=== PATIENT | male | born 1955 | race Caucasian/White ===

== ENCOUNTER 2016-11-06 08:49 | Emergency (ER) | payer BC, OTHER ==
--- NOTE | 2016-11-06 09:07 | EDM.PDOC ---
ED HPI GENERAL MEDICAL PROBLEM - General Chief Complaint: Chest Pain Stated Complaint: CHEST PAIN Time Seen by Provider: 11/06/16 08:50 Source of Information: Reports: Patient History Limitations: Reports: No Limitations - History of Present Illness INITIAL COMMENTS - FREE TEXT/NARRATIVE: 61 yr male presents with right sided chest pain and states he coughed up some blood this am. 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 States he was driving up from the [place] and has taken Tylenol for pain. States muscle spasm like pain to right lower, lateral chest area. EKG shows, NSR with no ST elevation. Onset: Today Onset Date: 11/06/16 Location: Reports: Chest Improves with: Reports: Heat Therapy Treatments DIRECTOR CAREER: Reports: Acetaminophen - Related Data Allergies Allergy/AdvReac Type Severity Reaction Status Date / Time calcitonin [From Miacalcin] Allergy Rash Verified 11/06/16 09:15 Home Meds: Home Meds Escitalopram [Lexapro] 20 mg PO DAILY 11/06/16 [History] Social & Family History - Tobacco Use Years of Tobacco use: 30 Used Tobacco, but Quit: No Second Hand Smoke Exposure: Yes - Recreational Drug Use Recreational Drug Use: No ED ROS GENERAL - Review of Systems Review Of Systems: See Below Constitutional: Reports: No Symptoms HEENT: Reports: No Symptoms Respiratory: Reports: Hemoptysis. Denies: Shortness of Breath, Cough Cardiovascular: Reports: Chest Pain. Denies: Edema GI/Abdominal: Reports: No Symptoms : Denies: Hematuria Skin: Reports: No Symptoms Neurological: Reports: No Symptoms ED EXAM, GENERAL - Physical Exam Exam: See Below Exam Limited By: No Limitations General Appearance: Alert, WD/WN, No Apparent Distress Nose: Normal Inspection Throat/Mouth: Normal Lips, Normal Voice Head: Atraumatic, Normocephalic Neck: Normal Inspection Respiratory/Chest: Lungs Clear, Normal Breath Sounds Cardiovascular: Regular Rate, Rhythm GI/Abdominal: Normal Bowel Sounds, Soft, Non-Tender Extremities: Normal Inspection, No Pedal Edema Neurological: Alert, Oriented Skin Exam: Warm, Dry Course - Vital Signs Last Recorded V/S: Last Vital Signs Temp 99.6 F 11/06/16 08:50 Pulse 76 11/06/16 08:50 Resp 12 11/06/16 08:50 BP 150/86 H 11/06/16 08:50 Pulse Ox 95 11/06/16 08:50 - Orders/Labs/Meds Orders: Active Orders 24 hr Category Date Time Status Cardiac Monitoring [RC] .As Directed Care 11/06/16 09:00 Active EKG Documentation Completion [RC] ASDIRECTED Care 11/06/16 09:03 Active Oxygen Therapy Adult [Oxygen Therapy, ED] [RC] Care 11/06/16 09:10 Active ASDIRECTED Labs: Laboratory Tests 11/06/16 11/06/16 11/06/16 Range/Units 09:15 09:15 09:15 WBC 15.8 H (4.0-11.0) K/uL RBC 5.45 (4.50-6.50) M/uL Hgb 17.6 (13.0-18.0) g/dL Hct 50.5 (40.0-54.0) % MCV 93 (76-96) fL MCH 32.3 H (27.0-32.0) pg MCHC 34.9 (31.0-35.0) g/dL RDW 12.8 (11.0-16.0) % Plt Count 176 (150-400) K/uL MPV 10.3 H (6.0-10.0) fL Neut % (Auto) 79.2 H (45.0-70.0) % Lymph % (Auto) 13.0 L (20.0-40.0) % Sanborn % (Auto) 7.4 (3.0-10.0) % Eos % (Auto) 0.1 L (1.0-5.0) % Baso % (Auto) 0.3 (0.0-0.5) % Neut # (Auto) 12.48 H (2.00-7.50) K/uL Lymph # (Auto) 2.04 (1.50-4.00) K/uL Sanborn # (Auto) 1.17 H (0.20-0.80) K/uL Eos # (Auto) 0.02 L (0.04-0.40) K/uL Baso # (Auto) 0.04 (0.02-0.10) K/uL PT 10.3 (9.0-11.5) sec INR 1.1 (1.0-3.5) APTT 28.6 (27.0-35.0) SECONDS Sodium 138 (136-145) mmol/L Potassium 4.3 (3.5-5.1) mmol/L Chloride 102 (98-107) mmol/L Carbon Dioxide 27.2 (21.0-32.0) mmol/L Anion Gap 13.1 (5.0-15.0) mmol/L BUN 11 (8-26) mg/dL Creatinine 0.78 (0.70-1.30) mg/dL Est Cr Clr Drug Dosing 102.69 mL/min Estimated GFR (MDRD) > 60 (>60) MLS/MIN BUN/Creatinine Ratio 14.1 (6-25) Glucose 110 H (74-100) mg/dL Calcium 9.1 (8.5-10.1) mg/dL Total Bilirubin 1.3 H (0.0-1.0) mg/dL AST 17 (15-37) U/L ALT 28 (12-78) U/L Alkaline Phosphatase 85 (46-116) U/L Troponin I (0.000-0.060) ng/mL Total Protein 8.2 (6.4-8.2) g/dL Albumin 3.9 (3.4-5.0) g/dL Globulin 4.3 H (2.2-4.2) g/dL Albumin/Globulin Ratio 0.9 (0.8-2.0) // Range/Units 09:15 WBC (4.0-11.0) K/uL RBC (4.50-6.50) M/uL Hgb (13.0-18.0) g/dL Hct (40.0-54.0) % MCV (76-96) fL MCH (27.0-32.0) pg MCHC (31.0-35.0) g/dL RDW (11.0-16.0) % Plt Count (150-400) K/uL MPV (6.0-10.0) fL Neut % (Auto) (45.0-70.0) % Lymph % (Auto) (20.0-40.0) % Sanborn % (Auto) (3.0-10.0) % Eos % (Auto) (1.0-5.0) % Baso % (Auto) (0.0-0.5) % Neut # (Auto) (2.00-7.50) K/uL Lymph # (Auto) (1.50-4.00) K/uL Sanborn # (Auto) (0.20-0.80) K/uL Eos # (Auto) (0.04-0.40) K/uL Baso # (Auto) (0.02-0.10) K/uL PT (9.0-11.5) sec INR (1.0-3.5) APTT (27.0-35.0) SECONDS Sodium (136-145) mmol/L Potassium (3.5-5.1) mmol/L Chloride (98-107) mmol/L Carbon Dioxide (21.0-32.0) mmol/L Anion Gap (5.0-15.0) mmol/L BUN (8-26) mg/dL Creatinine (0.70-1.30) mg/dL Est Cr Clr Drug Dosing mL/min Estimated GFR (MDRD) (>60) MLS/MIN BUN/Creatinine Ratio (6-25) Glucose (74-100) mg/dL Calcium (8.5-10.1) mg/dL Total Bilirubin (0.0-1.0) mg/dL AST (15-37) U/L ALT (12-78) U/L Alkaline Phosphatase (46-116) U/L Troponin I < 0.017 (0.000-0.060) ng/mL Total Protein (6.4-8.2) g/dL Albumin (3.4-5.0) g/dL Globulin (2.2-4.2) g/dL Albumin/Globulin Ratio (0.8-2.0) Meds: Medications Discontinued Medications Generic Name Dose Route Start Last Admin Trade Name Freq PRN Reason Stop Dose Admin Ceftriaxone Sodium Confirm 11/06/16 10:22 Rocephin Administered 11/06/16 10:23 Dose 1 gm .ROUTE .STK-MED ONE Sodium Chloride 1,000 mls @ 100 mls/hr 11/06/16 09:15 11/06/16 10:00 Normal Saline IV 100 mls/hr ASDIRECTED EDEN Administration Ceftriaxone Sodium 1 gm/ 50 mls @ 200 mls/hr 11/06/16 10:15 11/06/16 10:45 Sodium Chloride IV 11/06/16 10:29 200 mls/hr ONETIME ONE Administration Azithromycin 500 mg/ Sodium 250 mls @ 250 mls/hr 11/06/16 10:37 11/06/16 10: 50 Chloride IV 11/06/16 11:36 250 mls/hr ONETIME ONE Administration Ketorolac Tromethamine 30 mg 11/06/16 09:56 11/06/16 10:16 Toradol IVPUSH 11/06/16 09:57 30 mg ONETIME ONE Administration Ketorolac Tromethamine Confirm 11/06/16 10:01 Toradol Administered 11/06/16 10:02 Dose 30 mg .ROUTE .STK-MED ONE Ketorolac Tromethamine Confirm 11/06/16 12:30 Toradol Administered 11/06/16 12:31 Dose 30 mg .ROUTE .STK-MED ONE - Re-Assessments/Exams Free Text/Narrative Re-Assessment/Exam: 11/06/16 17:17 LE 12:00 Pt states he is feeling better after the Toradol for pain relief. States he can't take any NSAIDS oral because he has problems with bleeding ulcers. States pain is bad with activity. Will give RX Tramodol for relief of right sided rib pain and Azithromycin for pneumonia. Pt tolerated Rocephin IV and Azithromycin IV well. Recommend f/u in clinic in 10-14 days. Departure - Departure Time of Disposition: 12:30 Disposition: Home, Self-Care 01 Condition: Good Clinical Impression: Pneumonia - Discharge Information Instructions: Tramadol tablets, Azithromycin tablets, Community-Acquired Pneumonia, Adult Referrals: PCP,None [Primary Care Provider] - Forms: ED Department Discharge Additional Instructions: Take tylenol (2 tablets) 650mg as needed for pain every 4 to 6 hours. Apply heat to painful area 3 to 4 times a day for 10 to minutes. Take tramadol as needed for pain as prescribed (can alternate every 4 to 6 hours within tylenol) . Take azithromycin as prescribed until gone. Follow up with provider if symptoms persist or worsen. - My Orders Last 24 Hours: My Active Orders 11/06/16 09:00 Cardiac Monitoring [RC] .As Directed 11/06/16 09:03 EKG Documentation Completion [RC] ASDIRECTED 11/06/16 09:10 Oxygen Therapy Adult [Oxygen Therapy, ED] [RC] ASDIRECTED - Assessment/Plan Last 24 Hours: My Active Orders 11/06/16 09:00 Cardiac Monitoring [RC] .As Directed 11/06/16 09:03 EKG Documentation Completion [RC] ASDIRECTED 11/06/16 09:10 Oxygen Therapy Adult [Oxygen Therapy, ED] [RC] ASDIRECTED
[2016-11-06] MEDS ORDERED: Sodium Chloride 0.9% 1,000 ML IV SCH (09:15)
[2016-11-06 09:33] VITALS: BP 150/86
[2016-11-06] MEDS ORDERED: Ketorolac 30 MG/ML SDV IVPUSH ONE (09:56)
[2016-11-06] MEDS ORDERED: Ketorolac 30 MG/ML SDV ONE ×2 (10:01→12:30)
[2016-11-06] MEDS ORDERED: cefTRIAXone 1 GM in Sodium Chloride 0.9% 50 ML IV ONE (10:15)
[2016-11-06] MEDS ORDERED: cefTRIAXone 1 GM Vial ONE (10:22)
[2016-11-06] MEDS ORDERED: Azithromycin 500 MG in Sodium Chloride 0.9% 250 ML IV ONE (10:37)
--- NOTE | 2016-11-06 12:05 | CR ---
DATE OF SERVICE: 11/06/16 CLINICAL DATA: chest pain AP PORTABLE CHEST: No priors. The heart size is within normal limits. There are minimal atelectatic changes in the left lung base. There is increased density in the right lower lung consistent with infiltrate or atelectasis. Pneumonia should be considered. There is slight blunting of the right costophrenic angle suggesting a small right pleural effusion or pleural scar. The lungs are otherwise clear. No pneumothorax. No other significant findings. [id number] [facility]
== END 2016-11-06 12:30 | disposition home or self-care (01) ==
LOC: LB.ED 08:49
DX: J18.9 Pneumonia, unspecified organism (principal); Z88.8 Allergy status to other drugs, medicaments and biological substances; Z79.899 Other long term (current) drug therapy; Z87.891 Personal history of nicotine dependence
CPT/HCPCS: 36415; 71010; 80053; 84484; 85025; 85610; 85730; 93005; 96374; 96375; 99285; J0456; J0696; J1885; J7040; J7050